=== PATIENT | female | born 1985 | race Caucasian/White ===

== ENCOUNTER 2020-12-04 08:31 | Outpatient (CLI) | payer OTHER, SELFPAY ==
--- NOTE | 2020-12-04 08:36 | ECG_ITS ---
Measurements Intervals [place] Rate: 68 P: 52 [place]: 165 QRS: 25 QRSD: 80 T: 16 QT: 350 QTc: 372 Interpretive Statements SINUS RHYTHM BASELINE ARTIFACT- I, II, III, AVR, AVL, AVF NORMAL ECG Electronically Signed On 12-04-2020 8:51:34 CDT by Nathan Cleveland D.O.
[2020-12-04 09:22] LABS: Basophils Percent Auto 0.5 % (0.2-1.2); Eosinophils Absolute Auto 0.1 K/mm3 (0-0.3); Eosinophils Percent Auto 1.5 % (0-4.4); Hematocrit 38.3 % (37.0-47.0); Hemoglobin 12.8 g/dL (12.0-15.0); Immature Granulocyte Absolute 0.02 K/mm3 (0.00-0.031); Immature Granulocyte Percent A 0.3 % (0-0.5); Lymphocytes Absolute Auto 1.96 K/mm3 (0.9-3.2); Lymphocytes Percent Auto 32.5 % (18.3-44.2); Mean Corpuscular HGB Conc 33.4 g/dl (32-36); Mean Corpuscular Hemoglobin 31.7 pg (26-34); Mean Corpuscular Volume 94.8 fl (80-100); Mean Platelet Volume 11.1 fl (7.4-10.4); Monocytes Absolute Auto 0.3 K/mm3 (0.1-0.6); Monocytes Percent Auto 5.5 % (2.6-8.5); Neutrophils Absolute Auto 3.6 K/mm3 (1.3-6.7); Neutrophils Percent Auto 59.7 % (45.5-73.1); Platelet Count Result 218 k/mm3 (150-375); Red Blood Count 4.04 M/mm3 (4.2-5.4); Red Cell Distribution Width 12.4 % (11.5-14.5)
== END 2020-12-04 08:32 | disposition home or self-care (01) ==
LOC: ANHSURGERY 08:35
PROVIDERS: Visit Provider Obstetrics & Gynecology
DX: N81.4 Uterovaginal prolapse, unspecified (principal); Z87.891 Personal history of nicotine dependence; Z01.818 Encounter for other preprocedural examination
CPT/HCPCS: 36415; 85025; 86850; 86900; 86901; 93005

== ENCOUNTER → 2020-12-05 04:15 | Outpatient (CLI) | payer OTHER, SELFPAY ==
[2020-12-05 19:03] LABS: SARS-CoV-2 RNA PCR Negative
== END ==
PROVIDERS: Visit Provider Obstetrics & Gynecology
DX: Z01.812 Encounter for preprocedural laboratory examination (principal); Z20.822 Contact with and (suspected) exposure to COVID-19
CPT/HCPCS: C9803; U0003; U0005

== ENCOUNTER 2020-12-08 01:20 | Day surgery (SDC) | payer OTHER, SELFPAY ==
[2020-11-24 15:39] VITALS: BMI 26.5
--- NOTE | 2020-12-05 09:36 | PM.IMHP ---
H&P: HPI History of Present Illness Date/Time: 12/05/20 09:36 Tiffany is a 35-year-old 4 para 4 who is admitted for robotic total vaginal hysterectomy secondary to prolapse and heavy bleeding. Her ovaries and tubes are absent. She has had pain discomfort and dyspareunia. Risks and benefits reviewed including but not exclusive of , aspiration, bleeding, transfusion, perforation of bowel, bladder ureters or other internal organs with need for open laparotomy. She received the ACOG handout entitled hysterectomy as well as at the end she handout. She had all questions answered. She asked to proceed Chief Complaint: pelvic pain and uterine prolapse Review of Systems Review of Systems: All systems reviewed & are unremarkable except as noted in HPI and below PMFSH Past Medical History Medical History Anxiety Arthritis Asthma COPD (chronic obstructive pulmonary disease) Depression Emphysema of lung Endometriosis Inguinal hernia Irritable bowel Kidney stone Sore throat UTI (urinary tract infection) Surgical History Surgical History H/O inguinal hernia repair H/O oophorectomy Hx of appendectomy Family History Family History Other Cerebrovascular accident Diabetes mellitus Family history of alcoholism Family history of arthritis Family history of cardiovascular disease Family history of mental disorder Hypertension Social History Social History Smoking packs per day: 2 Smoking cigarettes per day: 40.0 Years smoked: 16 Smoking pack-years: 32.00 Smoking status: Former smoker Tobacco type: cigarettes Second hand tobacco smoke exposure: No Smoking end date: 08/28/18 Alcohol intake: current Drinks per week: 1 Substance use: never Gender identity (if verbalized by the patient): Female Spiritual care concerns: No Meds Home Medications and Allergies Home Medications Medication Instructions Recorded Confirmed Type conjugated estrogens [Premarin] 1.25 mg PO DAILY 11/24/20 11/24/20 History medroxyprogesterone 5 mg PO DAILY 11/24/20 11/24/20 History multivitamin [Daily Vitamin] 1 tablet PO DAILY 11/24/20 11/24/20 History naproxen 500 mg PO BID PRN 11/24/20 11/24/20 History Allergies Allergy/AdvReac Type Severity Reaction Status Date / Time amoxicillin Allergy Intermediate Hives Verified 11/24/20 16:11 clindamycin Allergy Intermediate Hives Verified 11/24/20 16:11 erythromycin base Allergy Intermediate Hives Verified 11/24/20 16:11 Penicillins Allergy Intermediate Hives Verified 11/24/20 16:11 Sulfa (Sulfonamide Allergy Intermediate Hives Verified 11/24/20 16:11 Antibiotics) sulfanilamide Allergy Intermediate Hives Verified 11/24/20 16:11 tramadol Allergy Intermediate Hives Verified 11/24/20 16:11 Exam Const: General: no acute distress Eyes: General: appearance normal, both eyes and all related structures Neck: Neck: supple and no JVD Thyroid: thyroid normal Resp: Effort & Inspection: normal respiratory effort Auscultation: clear to auscultation bilaterally Cardio: Rate: regular rate Rhythm: regular rhythm GI: Inspection: non-distended GI Palp: Yes Soft to palpation, No Tenderness to palpation present (GI) and No Guarding due to palpation present (GI) Auscultation: normal bowel sounds : General: Yes bladder normal to palpation External Female Exam: normal external appearance Speculum Exam - Vagina: normal vaginal discharge and No vaginal bleeding Speculum Exam - Cervix: nontender Bimanual exam- vagina & uterus: bladder normal to palpation and No Cervical tenderness present OB/external & speculum: No vaginal bleeding Skin: General skin exam: no rashes or lesions noted Extrem: General: normal to inspection and no edema
[2020-12-08] VITALS (11 sets, daily range): BP systolic 111–142; BP diastolic 70–99; PULSE 52–98; RESP 10–18; TEMP 36.4–36.9; O2SAT 95–100
--- NOTE | 2020-12-08 06:42 | WPDHPUPDATE1 ---
History and Physical Update Update Date/Time: 12/08/20 06:42 History and Physical has been reviewed, including an updated exam of the patient. There are NO changes in the patient's condition. Risks, benefits, and alternatives have been discussed and questions answered. Patient agrees to proceed with procedure.
--- NOTE | 2020-12-08 08:26 | WPDANESEPPF ---
Anes - Initial Pre Proc Eval Procedure: Operation Date: 12/08/20 10:00 Proposed Procedures p Robotic Assisted Total Vaginal Hysterectomy - Santo Morgan MD Date/Time: 12/08/20 08:26 Surgeon: Santo Morgan MD Pre Op Diagnosis: irreg bleeding, uterine prolapse Patient Data Age: 35 Gender: F Height: 5 ft 2 in Weight: 65.77 kg Allergies Allergy/AdvReac Type Severity Reaction Status Date / Time amoxicillin Allergy Intermediate Hives Verified 11/24/20 16:11 clindamycin Allergy Intermediate Hives Verified 11/24/20 16:11 erythromycin base Allergy Intermediate Hives Verified 11/24/20 16:11 Penicillins Allergy Intermediate Hives Verified 11/24/20 16:11 Sulfa (Sulfonamide Allergy Intermediate Hives Verified 11/24/20 16:11 Antibiotics) sulfanilamide Allergy Intermediate Hives Verified 11/24/20 16:11 tramadol Allergy Intermediate Hives Verified 11/24/20 16:11 Home Medications Medication Instructions Recorded Confirmed Type conjugated estrogens [Premarin] 1.25 mg PO DAILY 11/24/20 11/24/20 History medroxyprogesterone 5 mg PO DAILY 11/24/20 11/24/20 History multivitamin [Daily Vitamin] 1 tablet PO DAILY 11/24/20 11/24/20 History naproxen 500 mg PO BID PRN 11/24/20 11/24/20 History hydrocodone-acetaminophen 1 tablet PO Q6H PRN #30 tablet 12/08/20 Rx Patient hx anesthesia problems: none Family hx anesthesia problems: none PMFSH Past Medical History Medical History Anxiety Arthritis Asthma COPD (chronic obstructive pulmonary disease) Depression Emphysema of lung Endometriosis Inguinal hernia Irritable bowel Kidney stone Sore throat UTI (urinary tract infection) Surgical History Surgical History H/O inguinal hernia repair H/O oophorectomy Hx of appendectomy Family History Family History Other Cerebrovascular accident Diabetes mellitus Family history of alcoholism Family history of arthritis Family history of cardiovascular disease Family history of mental disorder Hypertension Social History Social History Smoking packs per day: 2 Smoking cigarettes per day: 40.0 Years smoked: 16 Smoking pack-years: 32.00 Smoking status: Former smoker Tobacco type: cigarettes Second hand tobacco smoke exposure: No Smoking end date: 08/28/18 Alcohol intake: current Drinks per week: 1 Substance use: never Living arrangements: with family Gender identity (if verbalized by the patient): Female Spiritual care concerns: No Anes - Eval Final PreProcedure Day of Procedure 12/08/20 08:26 Patient weight: overweight Heart: regular rate and rhythm Lungs: clear to auscultation Airway: Mallampati scale class 1 and other (edentulous) Neurological: alert and oriented Last oral intake: >/= 8 hours ASA classification: III Emergent: no Anesthetic plan: proceed Anesthesia type and monitoring: general ETT and standard monitoring Informed Consent: The patient's anesthetic plan and its attendant risks and benefits were discussed with the patient/family/POA. Questions were solicited and answers provided to the satisfaction of the patient/family/POA.
[2020-12-08] MEDS: ACETAMINOPHEN 500 MG TABLET 1000 MG PO (08:58)
[2020-12-08] MEDS: LACTATED RINGERS 1,000 ML 30 ML IV CONT (09:00)
[2020-12-08] MEDS: KETOROLAC 15 MG/ML VIAL (*BKC) IV PUSH (09:05)
--- NOTE | 2020-12-08 09:48 | SUR.PREOP ---
0920-PT CANNOT REMOVE [place] RING AND REQUESTS IT TO BE CUT OFF FOR RESIZING, AWARE SHE CAN SIGN WAIVER BUT, REQUESTS IT BE CUT OFF-RING CUT OFF WITH ONE CUT AND PLACED IN BAGGY AND PUT IN FRONT ZIPPER POCKET OF BACKPACK PER PT REQUEST.
--- NOTE | 2020-12-08 10:35 | P.OP_ITS ---
Procedure Note - Detailed Date of procedure: 12/08/20 Pre-op diagnosis: irreg bleeding, uterine prolapse Surgeon: Santo Morgan MD Postop diagnosis: Irregular bleeding and uterine prolapse Procedure: Robotic total vaginal hysterectomy Anesthesia: General tracheal EBL: 10cc Findings: Absent ovaries and tubes. Masching the left lower quadrant. The prolapsed uterus. Complications: None Description of procedure: The patient was prepped draped in the normal sterile fashion placed in the dorsal lithotomy position. Under excellent general trach anesthesia weighted speculum placed posterior fornix vagina. Anterior lip of the cervix grasped with single-tooth tenaculum the uterus sounded to 10cm. Serial dilatation with fragmented dilators performed followed passes the 10. BRISEIDA and the 3. Cold cup. Next the 16 [place] catheter placed in the bladder draining clear urine. The weighted speculum was removed. Gloves were changed. A supraumbilical incision made in the Veress needle passed in the abdomen. The abdomen filled with CO2 gas 15mm good. The 8mm trocar advanced in the abdomen a nd the downside visualized with no injury seen. Patient placed in Trendelenburg and right left lateral quadrant incisions made. The 8mm trocar was advanced under direct visualization assuring no injury bilaterally. Right upper quadrant incision made the 8mm trocar advanced under direct visualization assuring no injury. Robot was docked. Attention was turned to the staff counsel. The left round ligament was grasped, burned, cut. Anterior bladder flap was formed by sharply dissecting the bladder away from the uterus to the opposite round ligament which was clamped, burned, cut. The round ligament on the right was clamped, burned, cut. Next the utero- ovarian ligaments on the left were clamped, burned, cut and the round in cardinal ligaments were serially skeletonized. These were clamped, burned, cut and brought down to the level uterine vessels on the left. These were large and tortuous and were individually clamped, burned, cut. In like fashion the cardinal broad ligaments on the right were serially skeletonized. These were clamped, burned, cut and brought down the lateral edge of the uterus until the uterine vessels could be seen on the right which were also noted to be large and tortuous. These were individually clamped, burned, cut. Blanching the uterus was noted and a colpotomy incision made. The uterus and cervix removed through the vagina. Blood loss estimated [id number]. The vagina was closed with continuous running 0V lock from lateral edge to lateral edge and back to the midline. Irrigation undertaken to clear and hemostasis was assured. The robot was undocked. The gas removed from the abdomen. The incisions closed with 4 O Monocryl and glue after the gas had been removed in the trocars removed. The patient was awakened. All sponge, needle, instrument counts were correct. There were no immediate complications
[2020-12-08] MEDS: diphenhydrAMINE HCl INJ 50 MG/ML VIAL 25 MG IV PUSH (11:09)
[2020-12-08] MEDS: fentaNYL CITRATE INJ (*CRX) 100 MCG/2 ML VIAL 25 MCG IV PUSH ×3 (11:18→11:54)
--- NOTE | 2020-12-08 11:36 | SUR.PHASEI ---
1135: Patient is asleep. Vitals are stable. RN is just waiting for room to be cleaned.
--- NOTE | 2020-12-08 12:15 | PC.NURSE ---
This patient, Tiffany Salas, was received from PACU per stretcher to room 287. Patient/family oriented to unit policies and routines
[2020-12-08] MEDS: DEXTROSE 5%/LACTATED RINGERS 1,000 ML 125 ML IV CONT (12:51)
[2020-12-08] MEDS: MORPHINE SULFATE (*CRX) 4 MG/ML INJ IV PUSH (12:52)
[2020-12-08] MEDS: HYDROcodone/acetaminophen (*CRX) 10-325 MG TABLET 1 TAB PO ×3 (13:53→21:40)
[2020-12-08] MEDS: KETOROLAC 30 MG/ML VIAL (*BKC) IV PUSH (15:13)
[2020-12-08] MEDS: DOCUSATE SODIUM 100 MG CAPSULE PO (17:39)
[2020-12-08] MEDS: SIMETHICONE 80 MG TAB.CHEW PO (20:00)
[2020-12-08] MEDS: IBUPROFEN 600 MG TABLET PO (23:34)
[2020-12-09] MEDS: SIMETHICONE 80 MG TAB.CHEW PO ×2 (02:37→08:04)
[2020-12-09] MEDS: HYDROcodone/acetaminophen (*CRX) 10-325 MG TABLET 1 TAB PO ×2 (02:37→08:05)
[2020-12-09 04:00] VITALS: BP 114/77; PULSE 79; RESP 18; TEMP 36.9; O2SAT 98
[2020-12-09 05:59] LABS: Basophils Percent Auto 0.2 % (0.2-1.2); Eosinophils Percent Auto 0.1 % (0-4.4); Hemoglobin 11.9 g/dL (12.0-15.0); Immature Granulocyte Absolute 0.03 K/mm3 (0.00-0.031); Immature Granulocyte Percent A 0.3 % (0-0.5); Lymphocytes Absolute Auto 2.26 K/mm3 (0.9-3.2); Lymphocytes Percent Auto 21.9 % (18.3-44.2); Mean Corpuscular Hemoglobin 31.9 pg (26-34); Mean Corpuscular Volume 93.8 fl (80-100); Mean Platelet Volume 11.3 fl (7.4-10.4); Monocytes Absolute Auto 0.6 K/mm3 (0.1-0.6); Monocytes Percent Auto 5.8 % (2.6-8.5); Neutrophils Absolute Auto 7.4 K/mm3 (1.3-6.7); Neutrophils Percent Auto 71.7 % (45.5-73.1); Platelet Count Result 221 k/mm3 (150-375); Red Blood Count 3.73 M/mm3 (4.2-5.4); Red Cell Distribution Width 12.2 % (11.5-14.5); White Blood Count 10.3 K/mm3 (4.5-10.0)
--- NOTE | 2020-12-09 07:51 | WPDANESPN ---
Anes - Prog Note Post-Op Date/Time: 12/09/20 07:51 Cardiovascular status: normal Respiratory status: normal Airway patency: baseline Mental status: baseline Post-Op hydration status: normal Vital Signs: Last Vital Signs Temp 36.9 C 12/09/20 04:00 Pulse 79 12/09/20 04:00 Resp 18 12/09/20 04:00 BP 114/77 12/09/20 04:00 Pulse Ox 98 12/09/20 04:00 Pain Score (VAS): 4 I/O: Intake & Output 12/08/20 12/08/20 12/09/20 15:59 23:59 07:59 Intake Total 350 1640 1200 Output Total 473 345 0704 Balance 110 1190 -600 Laboratory Tests 12/09/20 04:10 12/09/20 04:10 WBC 10.3 H RBC 3.73 L Hgb 11.9 L Hct 35.0 L MCV 93.8 MCH 31.9 MCHC 34.0 RDW 12.2 Plt Count 221 MPV 11.3 H Immature Gran % (Auto) 0.3 Neut % (Auto) 71.7 Lymph % (Auto) 21.9 [place] % (Auto) 5.8 Eos % (Auto) 0.1 Baso % (Auto) 0.2 Lymph # (Auto) 2.26 [place] # (Auto) 0.6 Eos # (Auto) 0.0 Baso # (Auto) 0.0 Abs Immat Gran (auto) 0.03 Absolute Neuts (auto) 7.4 H Absolute Nucleated RBC 0.0 Nucleated RBC % 0.0 Post-procedural complaints: none Patient Feedback: Patient satisfied with anesthetic care.
[2020-12-09] MEDS: DOCUSATE SODIUM 100 MG CAPSULE PO (08:04)
[2020-12-09 08:05] VITALS: BP 121/75; PULSE 73; RESP 18; TEMP 36.7; O2SAT 100
[2020-12-09] MEDS: IBUPROFEN 600 MG TABLET PO (08:05)
[2020-12-09] MEDS: ENOXAPARIN 40 MG/0.4 ML SYRINGE SUB-Q (08:08)
--- NOTE | 2020-12-09 08:16 | PM.DS ---
DS: Admitting Diagnosis Admitting Diagnosis Admitting Diagnosis: pelvic organ prolapse, pelvic pain DS: Summary Hospital Course Hospital Course: Tiffany Salas was admitted after robotic assisted total laparoscopic hysterectomy and bilateral salpingectomy for pelvic pain and prolapse. The above procedure was performed with no complications. She is doing well post op. She states her pain is well controlled with PO medications. She reports minimal bleeding. She is ambulating up to the chair. Her nam catheter was removed. She is tolerating PO without N/V. She reports passing flatus. Status at Discharge Overall status at discharge: patient is progressing back to baseline Time Spent with Patient Time attestation: Total time spent providing and/or coordinating discharge services: Time spent: Less than 30 minutes Exam Const: General: comfortable and no acute distress Limitations: no limitations Resp: Effort & Inspection: normal respiratory effort Auscultation: clear to auscultation bilaterally Cardio: Rate: regular rate Rhythm: regular rhythm GI: Inspection: non-distended GI Palp: Yes Soft to palpation, Yes Tenderness to palpation present (GI) (milder tenderness to deep palpation) and No Guarding due to palpation present (GI) Auscultation: normal bowel sounds Other: incisions C/D/I covered with dermabond Urinary Catheter: Urinary Catheter: urine clear Skin: General skin exam: normal color Extrem: General: normal to inspection Psych: Mental Status: mental status grossly normal Affect: normal affect DS: Data Data Completed and Pending Pending studies at discharge: Pending at discharge 12/08/20 10:23 Surgical [PTH] Routine Labs on day of discharge: Labs from last 24 hours 12/09/20 04:10 WBC 10.3 H RBC 3.73 L Hgb 11.9 L Hct 35.0 L MCV 93.8 MCH 31.9 MCHC 34.0 RDW 12.2 Plt Count 221 MPV 11.3 H Immature Gran % (Auto) 0.3 Neut % (Auto) 71.7 Lymph % (Auto) 21.9 [place] % (Auto) 5.8 Eos % (Auto) 0.1 Baso % (Auto) 0.2 Lymph # (Auto) 2.26 [place] # (Auto) 0.6 Eos # (Auto) 0.0 Baso # (Auto) 0.0 Abs Immat Gran (auto) 0.03 Absolute Neuts (auto) 7.4 H Absolute Nucleated RBC 0.0 Nucleated RBC % 0.0 Discharge Plan Discharge Patient Disposition: Home, Self-Care Patient Instructions: Laparoscopic Hysterectomy (DC) Stand Alone Forms: General Discharge Instructions Follow-up/Referrals: Santo Morgan MD [Physician] - Discharge Medications: New hydrocodone-acetaminophen 5-300 mg tablet 1 tablet PO Q6H PRN (Reason: pain) Qty: 30 RF: 0 No Action multivitamin [Daily Vitamin] Tablet 1 tablet PO DAILY RF: 0 [place] 0.1 mg-0.02 mg (21)/36.5 mg(7) Tablet 1 tablet PO DAILY RF: 0
[2020-12-09] MEDS: HYDROcodone/acetaminophen (*CRX) 5-325 MG TABLET 1 TAB PO (11:53)
--- NOTE | 2020-12-09 12:29 | PC.NURSE ---
1030 pt reported a transient episode of nausea that hit her suddenly; when nurse came in to assess, pt states it had resolved with rest, and sipping cola. Pt states she feels she possibly ate too much of her breakfast.
== END 2020-12-09 12:08 | disposition home or self-care (01) ==
LOC: ANHSURGERY 08:03 → ANHOB2 12:07
PROVIDERS: Visit Provider Obstetrics & Gynecology
PROC: (CPT 58550; principal; 2020-12-08 10:00)
DX: N81.4 Uterovaginal prolapse, unspecified (principal); N80.0 Endometriosis of uterus; N92.6 Irregular menstruation, unspecified; N73.6 Female pelvic peritoneal adhesions (postinfective); F41.9 Anxiety disorder, unspecified; M19.90 Unspecified osteoarthritis, unspecified site; J45.909 Unspecified asthma, uncomplicated; J44.9 Chronic obstructive pulmonary disease, unspecified; F32.9 Major depressive disorder, single episode, unspecified; Z87.891 Personal history of nicotine dependence
CPT/HCPCS: 58550; S2900; 36415; 85025; 86850; 86900; 86901; 88307; 93005; 99199; A9270; C9803; J1100; J1200; J1650; J1885; J2270; J2405; J2704; J2710; J3010; J3370; J7030; J7120; J7121; U0003; U0005

== ENCOUNTER 2021-09-20 12:56 | Emergency (ER) | payer OTHER, SELFPAY ==
[2021-09-20 13:06] VITALS: BP 117/78; PULSE 69; RESP 18; TEMP 36.1; O2SAT 100
--- NOTE | 2021-09-20 13:30 | ED.URI ---
HPI - URI/Sore Throat General Chief Complaint: Upper Respiratory Infection Stated Complaint: Cold/flu Source: patient and RN notes reviewed Mode of arrival: ambulatory History of Present Illness HPI Narrative: This is a 36-year-old female that presented to urgent care with complaints of a headache, chills, congestion of that she has had for the last 4 days. 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 Patient will receive COVID PCR due to her positive exposure to coworkers who tested positive and working with the general public. The patient denies SOB, CP, palpitation, extremity numbness, lightheadedness, dizziness, constipation, diarrhea, chills, or fever. Related Data Home Medications Medication Instructions Recorded Confirmed estradiol 2 mg tablet 1 mg PO DAILY tablet 04/23/21 09/20/21 Allergies Allergy/AdvReac Type Severity Reaction Status Date / Time amoxicillin Allergy Severe Swelling Verified 09/20/21 13:16 of Lip/Tongue/Throat clindamycin Allergy Intermediate Hives Verified 09/20/21 13:05 erythromycin base Allergy Intermediate Hives Verified 09/20/21 13:05 Penicillins Allergy Intermediate Hives Verified 09/20/21 13:05 Sulfa (Sulfonamide Allergy Intermediate Hives Verified 09/20/21 13:05 Antibiotics) sulfanilamide Allergy Intermediate Hives Verified 09/20/21 13:05 tramadol Allergy Intermediate Hives Verified 09/20/21 13:05 Review of Systems Review of Systems: A 14 organ system Review of Systems was performed and pertinent positives included in the HPI, otherwise remaining ROS is negative. [facility] Past Medical History Medical History Allergies Anxiety Arthritis Asthma COPD (chronic obstructive pulmonary disease) Depression Endometriosis High cholesterol Inguinal hernia Irritable bowel Kidney stone Surgical History Surgical History H/O inguinal hernia repair H/O oophorectomy H/O: hysterectomy Hx of appendectomy Family History Family History Other Cerebrovascular accident Diabetes mellitus Family history of alcoholism Family history of arthritis Family history of cardiovascular disease Family history of mental disorder Hypertension Social History Social History Smoking packs per day: 2 Smoking cigarettes per day: 40.0 Years smoked: 16 Smoking pack-years: 32.00 Smoking status: Former smoker Second hand tobacco smoke exposure: No Alcohol intake: current Drinks per week: 1 Substance use: never Gender identity (if verbalized by the patient): Female Spiritual care concerns: No Exam Narrative: GENERAL: This is a well-nourished, well-developed patient, in no apparent distress. HEAD: normocephalic, atraumatic. EYES: PERRL. Sclera clear/white. Vision is grossly intact. EARS: External ears normal, auditory canals clear and without drainage, TMs normal without perforation. Hearing grossly intact. NOSE: External nose normal with no obvious nasal discharge, nares without redness, no rhinorrhea. THROAT: Mucous membranes moist, posterior pharynx clear. NECK: Neck supple, non-tender without lymphadenopathy, masses or thyromegaly. CARDIOVASCULAR: Regular rate and rhythm without murmurs, gallops, or rubs. RESPIRATORY: Clear to auscultation. Breath sounds equal bilaterally. No wheezes, rales, or rhonchi. GASTROINTESTINAL: Abdomen soft, non-tender, nondistended. Bowel sounds are active. No hepato-splenomegaly, or palpable masses. No guarding. SKIN: warm, intact with no suspicious lesions or rash, good texture and turgor. NEURO: awake, alert, and oriented to person, place and time. There were no obvious focal neurologic abnorm
[2021-09-21 21:55] LABS: SARS-CoV-2 RNA PCR Negative
== END 2021-09-20 13:31 | disposition home or self-care (01) ==
PROVIDERS: Emergency Provider Nurse Practitioner; PCP Nurse Practitioner
DX: B34.9 Viral infection, unspecified (principal); Z20.822 Contact with and (suspected) exposure to COVID-19; Z87.891 Personal history of nicotine dependence; M19.90 Unspecified osteoarthritis, unspecified site; J44.9 Chronic obstructive pulmonary disease, unspecified; N80.9 Endometriosis, unspecified; E78.00 Pure hypercholesterolemia, unspecified; F41.9 Anxiety disorder, unspecified; F32.9 Major depressive disorder, single episode, unspecified
CPT/HCPCS: 99213; C9803; G0463; U0003; U0005

== ENCOUNTER 2022-05-14 10:08 | Outpatient (CLI) | payer OTHER, SELFPAY | END 2022-05-14 10:09 | disposition home or self-care (01) | LOC: ANHAUDIO 10:09 | PROVIDERS: PCP Family Medicine; Visit Provider Nurse Practitioner | DX: H90.3 Sensorineural hearing loss, bilateral (principal) | CPT/HCPCS: 92557; 92567 ==

== ENCOUNTER 2022-05-28 10:47 | Emergency (ER) | payer OTHER, SELFPAY ==
--- NOTE | ~2022-05-28 | XR_ITS ---
EXAMINATION: XR chest 2V DATE: 05/28/2022 12:58 INDICATION: Chest pain and anxiety TECHNIQUE: PA and lateral views of the chest are obtained. COMPARISON: 09/27/2019 FINDINGS: The lungs are free of acute opacities. No pleural effusion or pneumothorax. The cardiomedia stinal silhouette is normal. The visualized bones and soft tissues are unremarkable. IMPRESSION: 1. No acute cardiopulmonary abnormality. Reviewed, dictated and finalized at location A.
[2022-05-28 10:50] VITALS: BP 138/94; PULSE 83; RESP 16; TEMP 36.7; O2SAT 100
--- NOTE | 2022-05-28 10:55 | ECG_ITS ---
Measurements Intervals [place] Rate: 80 P: 52 [place]: 156 QRS: 19 QRSD: 81 T: 29 QT: 346 QTc: 399 Interpretive Statements SINUS RHYTHM WITH SINUS ARRHYTHMIA BASELINE ARTIFACT- I, II, III, AVR NORMAL ECG NO PREVIOUS ECG AVAILABLE FOR COMPARISON Electronically Signed On 05-28-2022 13:15:43 CDT by Nathan Cleveland D.O.
[2022-05-28 11:13] LABS: Basophils Percent Auto 0.5 % (0.2-1.2); Eosinophils Absolute Auto 0.1 K/mm3 (0-0.3); Eosinophils Percent Auto 2.2 % (0-4.4); Hematocrit 39.9 % (37.0-47.0); Hemoglobin 13.4 g/dL (12.0-15.0); Immature Granulocyte Absolute 0.01 K/mm3 (0.00-0.031); Immature Granulocyte Percent A 0.2 % (0-0.5); Lymphocytes Absolute Auto 1.37 K/mm3 (0.9-3.2); Lymphocytes Percent Auto 33.1 % (18.3-44.2); Mean Corpuscular HGB Conc 33.6 g/dl (32-36); Mean Corpuscular Hemoglobin 31.5 pg (26-34); Mean Corpuscular Volume 93.9 fl (80-100); Monocytes Absolute Auto 0.3 K/mm3 (0.1-0.6); Monocytes Percent Auto 6.3 % (2.6-8.5); Neutrophils Absolute Auto 2.4 K/mm3 (1.3-6.7); Neutrophils Percent Auto 57.7 % (45.5-73.1); Platelet Count Result 195 k/mm3 (150-375); Red Blood Count 4.25 M/mm3 (4.2-5.4); Red Cell Distribution Width 12.7 % (11.5-14.5); White Blood Count 4.1 K/mm3 (4.5-10.0)
[2022-05-28 11:21] LABS: INR 1.1; Prothrombin Time 13.3 Seconds (11.1-14.7)
[2022-05-28 11:22] LABS: Partial Thromboplastin Time 27.5 SECONDS (22.3-36.8)
[2022-05-28 11:28] LABS: Alanine Aminotransferase 29 U/L (6-35); Albumin Level 4.6 g/dL (3.5-5.1); Alkaline Phosphatase 67 U/L (38-126); Anion Gap 14 mmol/L (8-16); Aspartate Amino Transferase 26 U/L (14-36); Bilirubin,Total 0.4 mg/dL (0.2-1.3); Blood Urea Nitrogen 8 mg/dL (7-17); Calcium 9.1 mg/dL (8.4-10.2); Carbon Dioxide 26 mmol/L (22-30); Chloride 98 mmol/L (98-107); Estimated CRCL calculation 66 ml/min; Estimated Glomerular Filt Rate > 60; Glucose 141 mg/dL (65-110); Lipase 42 U/L (23-300); Potassium 3.8 mmol/L (3.4-5.0); Sodium 138 mmol/L (137-145)
[2022-05-28 11:40] LABS: Troponin I < 0.012 ng/mL (0.000-0.034)
[2022-05-28 12:33] VITALS: BP 136/106; PULSE 83; PULSE 86; RESP 13; TEMP 36.8; O2SAT 100
--- NOTE | 2022-05-28 12:51 | PC.NURSE ---
pt. to XR
[2022-05-28 13:00] VITALS: BP 121/92; PULSE 72; RESP 19; O2SAT 100
[2022-05-28] MEDS: KETOROLAC 30 MG/ML VIAL (*BKC) IV PUSH (13:00)
--- NOTE | 2022-05-28 14:17 | ED.GENADULT ---
HPI - General Adult General Chief complaint: Chest Pain Stated complaint: CP, dizziness, abnormal EKG at AM yest. Time Seen by Provider: 05/28/22 12:31 History of Present Illness HPI narrative: Patient is a 36-year-old female who presents ER with multiple issues. Main issue is report of chest pain that began yesterday. Occurred around 5 PM when she went to [place] [facility]. Blood work was drawn and an EKG was performed but she left due to prolonged wait. She was reviewing her labs and EKG and noticed that the EKG was abnormal which concerned her. She reports since this morning she is also continued to have pain in her left neck going down her left arm. No additional chest pain today. Yesterday when symptoms started she started having dizziness and sweats. Patient has known vertigo but this seemed more intense. No dizziness at this time. No sweats or nausea. Related Data Home Medications Medication Instructions Recorded Confirmed estradiol 2 mg tablet 1 mg PO DAILY 04/23/21 05/13/22 ergocalciferol (vitamin D2) 1,250 50,000 unit PO WEEKLY 01/23/22 05/13/22 mcg (50,000 unit) capsule loratadine 10 mg tablet (Claritin) 10 mg PO DAILY PRN Allergy Symptoms 01/23/22 05/13/22 multivitamin 1 tablet PO DAILY 01/23/22 05/13/22 Allergies Allergy/AdvReac Type Severity Reaction Status Date / Time amoxicillin Allergy Severe Swelling Verified 05/28/22 12:47 of Lip/Tongue/Throat clindamycin Allergy Intermediate Hives Verified 05/28/22 12:47 erythromycin base Allergy Intermediate Hives Verified 05/28/22 12:47 Penicillins Allergy Intermediate Hives Verified 05/28/22 12:47 Sulfa (Sulfonamide Allergy Intermediate Hives Verified 05/28/22 12:47 Antibiotics) sulfanilamide Allergy Intermediate Hives Verified 05/28/22 12:47 tramadol Allergy Intermediate Hives Verified 05/28/22 12:47 Review of Systems Review of Systems: All systems reviewed & are unremarkable except as noted in HPI and below Constitutional: Constitutional: Denies chills and Denies fever(s) ENT: Reports vertigo, Denies nasal congestion and Denies sore throat Cardiovascular: Cardiovascular: Reports chest pain, Denies rapid heart rate and Reports radiating jaw, neck or arm pain Respiratory: Respiratory: Denies cough and Denies dyspnea Gastrointestinal: Gastrointestinal: Denies nausea and Denies vomiting Musculoskeletal: Musculoskeletal: Denies back pain, Denies arthralgias and Denies joint swelling Neurologic: Denies syncope, Denies focal weakness and Denies numbness PMFSH Past Medical History Medical History Allergies Anxiety Arthritis Asthma COPD (chronic obstructive pulmonary disease) Depression Endometriosis High cholesterol Inguinal hernia Irritable bowel Kidney stone Surgical History Surgical History H/O inguinal hernia repair H/O oophorectomy H/O: hysterectomy Hx of appendectomy Family History Family History Other Cerebrovascular accident Diabetes mellitus Family history of alcoholism Family history of arthritis Family history of cardiovascular disease Family history of mental disorder Hypertension Social History Social History Smoking packs per day: 2 Smoking cigarettes per day: 40.0 Years smoked: 16 Smoking pack-years: 32.00 Smoking status: Former smoker Second hand tobacco smoke exposure: No Alcohol intake: current Drinks per week: 1 Substance use: never Additional living arrangements comments: and Children Gender identity (if verbalized by the patient): Female Sexual Orientation (if Verbalized by the Patient): Straight or Heterosexual Spiritual care concerns: No Exam Narrative: GENERAL: Well-appearing, well-nourished, and in no acute distress. HEAD: Normocephalic, atraumat
[2022-05-28 14:22] VITALS: BP 120/95; PULSE 68; RESP 16; O2SAT 99
[2022-05-28 14:26] LABS: Troponin I < 0.012 ng/mL (0.000-0.034)
[2022-05-28 15:19] VITALS: BP 124/91; PULSE 61; RESP 18; O2SAT 100
== END 2022-05-28 15:20 | disposition home or self-care (01) ==
PROVIDERS: Emergency Provider Emergency Medicine; PCP Nurse Practitioner
DX: R07.9 Chest pain, unspecified (principal); J44.9 Chronic obstructive pulmonary disease, unspecified; E78.00 Pure hypercholesterolemia, unspecified; N80.9 Endometriosis, unspecified; M19.90 Unspecified osteoarthritis, unspecified site; F32.A Depression, unspecified; Z87.442 Personal history of urinary calculi; Z90.710 Acquired absence of both cervix and uterus; Z87.891 Personal history of nicotine dependence
CPT/HCPCS: 36415; 71046; 80053; 83690; 84484; 85025; 85610; 85730; 93005; 99284; J1885

== ENCOUNTER 2022-06-20 10:19 | Outpatient (CLI) | payer OTHER, SELFPAY ==
--- NOTE | 2022-06-20 10:41 | EST_ITS ---
Patient Info Name: Tiffany Bauer Age: 36 years : 1985 Gender: Female Ht: 62 in Wt: 137 lbs BSA: 1.66 m2 HR: 74 bpm BP: 128 / 95 mmHg Heart Rhythm: Sinus Rhythm Exam Date: 06/20/2022 10:49 AM Exam Location: [facility] Patient Status: Outpatient Admit Date: 06/20/2022 Staff Ordering Physician: Martha Gray NP Attending Provider: Martha Gray NP Exercise Technologist: Daisy Gil CT Exercise Physician: Nathan Cleveland DO Exam Type: CA stress test treadmill Study Info Indications R07.9 - Chest pain, unspecified A treadmill exercise stress test was performed. Summary 1. 1. Negative [facility] exercise stress test for ischemic ST changes by ECG criteria. 2. 2. Good functional capacity, achieving 12 METs of workload. 3. 3. Appropriate HR response to exercise. 4. 4. Appropriate HR recovery at 1 minute post exercise. 5. 5. No imaging with stress testing. 6. 6. Patient informed of the above results. Protocol: [facility] Stress ECG Details Stage: REST Duration (min): 3 min : 40 sec Speed (mph): 0.0 Grade (%): 0 HR (bpm): 69 SBP (mmHg): 128 DBP (mmHg): 95 METS: --- Stage: REST Duration (min): 8 min : 17 sec Speed (mph): 0.0 Grade (%): 0 HR (bpm): 76 SBP (mmHg): 128 DBP (mmHg): 95 METS: --- Stage: STAGE 1 Duration (min): 1 min : 0 sec Speed (mph): 1.7 Grade (%): 10 HR (bpm): 102 SBP (mmHg): 128 DBP (mmHg): 95 METS: --- Stage: STAGE 1 Duration (min): 2 min : 0 sec Speed (mph): 1.7 Grade (%): 10 HR (bpm): 113 SBP (mmHg): 128 DBP (mmHg): 95 METS: --- Stage: STAGE 1 Duration (min): 3 min : 0 sec Speed (mph): 1.7 Grade (%): 10 HR (bpm): 116 SBP (mmHg): 145 DBP (mmHg): 102 METS: --- Stage: STAGE 2 Duration (min): 1 min : 0 sec Speed (mph): 2.5 Grade (%): 12 HR (bpm): 126 SBP (mmHg): 145 DBP (mmHg): 102 METS: --- Stage: STAGE 2 Duration (min): 2 min : 0 sec Speed (mph): 2.5 Grade (%): 12 HR (bpm): 126 SBP (mmHg): 140 DBP (mmHg): 104 METS: --- Stage: STAGE 2 Duration (min): 3 min : 0 sec Speed (mph): 2.5 Grade (%): 12 HR (bpm): 126 SBP (mmHg): 156 DBP (mmHg): 80 METS: --- Stage: STAGE 3 Duration (min): 1 min : 0 sec Speed (mph): 3.4 Grade (%): 14 HR (bpm): 144 SBP (mmHg): 160 DBP (mmHg): 97 METS: --- Stage: STAGE 3 Duration (min): 2 min : 0 sec Speed (mph): 3.4 Grade (%): 14 HR (bpm): 137 SBP (mmHg): 160 DBP (mmHg): 97 METS: --- Stage: STAGE 3 Duration (min): 3 min : 0 sec Speed (mph): 3.4 Grade (%): 14 HR (bpm): 149 SBP (mmHg): 160 DBP (mmHg): 97 METS: --- Stage: STAGE 4 Duration (min): 1 min : 0 sec Speed (mph): 4.2 Grade (%): 16 HR (bpm): 174 SBP (mmHg): 83 DBP (mmHg): 33 METS: ---
== END 2022-06-20 10:20 | disposition home or self-care (01) ==
PROVIDERS: PCP Family Medicine; Visit Provider Nurse Practitioner
DX: R07.89 Other chest pain (principal)
CPT/HCPCS: 93017